=== PATIENT | female | born 1985 | race Caucasian/White ===

== ENCOUNTER 2017-07-11 15:07 | Emergency (ER) | payer SELFPAY ==
[~2017-07-11] VITALS: Ht 162.6 cm; Wt 63.5 kg
[2017-07-11 15:07] VITALS: BP 135/89
[2017-07-11] MEDS ORDERED: IBUPROFEN 600 MG TABLET PO ONE (16:24)
[2017-07-11] MEDS: IBUPROFEN 600 MG TABLET PO ONE (16:31)
== END 2017-07-11 16:39 | disposition home or self-care (01) ==
LOC: ER 15:09
DX: M54.2 Cervicalgia (principal); R11.0 Nausea; R51 Headache; V49.59XA Passenger injured in collision with other motor vehicles in traffic accident, initial encounter; Y93.89 Activity, other specified; Y92.413 State road as the place of occurrence of the external cause; Y99.8 Other external cause status
CPT/HCPCS: A4606; Z7610